=== PATIENT | female | born 1990 | race African-American/Black ===

== ENCOUNTER → 2019-10-24 | Outpatient (CLI) | payer OTHER | LOC: MRI 09:04 | DX: M54.12 Radiculopathy, cervical region (principal); M85.68 Other cyst of bone, other site ==

== ENCOUNTER → 2020-02-20 | Outpatient (CLI) | payer OTHER | LOC: MRI 02-06 09:54 | DX: M51.27 Other intervertebral disc displacement, lumbosacral region (principal); M48.07 Spinal stenosis, lumbosacral region ==